=== PATIENT | male | born 1955 | race Caucasian/White ===

== ENCOUNTER → 2016-12-10 | Outpatient (CLI) | payer MEDICARE, BC ==
[~2016-12-10] MED LIST: ADVIL 200MG TA200 MG PO; ALBUTEROL0.83 MG/ML IH; ALBUTEROL1.25 MG/3 IH; ARAVA 20MG TABL20 MG PO; ASPI325T6 PO; AZULFADINE; BYSTOLIC10 MG PO; CALCIUM CITRAT200 MG PO; CARAFATE S1 GM/10 ML PO; CELLCEPT 5500 MG/TAB PO; CHANTIX1 MG PO; CITRACAL + D CA1 TAB; COMBIVENT INH14.7 GM IH; DULCOLAX S10 MG/SUPP RC; FLOVENT 110MCG7.9 GM IH; FLOVENT DI100 MCG/Ac IH; FORADIL AERO0.012 MG IH; FOSAMAX 70MG TA70 MG PO; LEVAQUIN 5500 MG/TA1 PO; LEVAQUIN 750MG750 M1 PO; LORTAB 5/500 501 TAB PO; MORPHINE 1515 MG/TAB PO; MOTRIN 600600 MG/TAB PO; MOTRIN 800800 MG/TAB PO; MSIR30 MG PO; MULTIPLE VITAMI1 CAP PO; PHENERGAN 25 TA25 MG PO; PRAVACHOL 20MG20 MG PO; PREDNISONE10 MG PO; PREDNISONE20 MG PO; PRILOSEC 20MG20 MG; PROTONIX 40MG T40 MG PO; ROXICODONE 55 MG/TAB PO; RT ADVAIR 228 DISKUS IH; RT ADVAIR HFA 2312 G IH; RT Duoneb Neb Soln IH; RT SPIRIVA18 MCG IH; SENOKOT S 50 MG1 TAB PO; SIMPONI50 MG/0.5 SC; TYLENOL EXTRA500 M1 PO; ULTRAM 50MG TAB50 MG PO; ULTRAM ER300 MG PO; VITAMIN B121000 MCG PO; VITAMIN D31 MILLION; VITAMIN D32000 IU PO; VOLTAREN 75 DR75 MG PO; ZEBETA10 MG PO; ZESTRIL 10MG10 MG PO; ZITHROMAX TRI-500 MG PO; ZITHROMAX Z PA250 MG PO; ZOCOR 20MG20 MG PO; [UNRECOGNIZED DRUG - REMARK]
== END ==
LOC: COL.VAS 08:51
DX: I34.0 Nonrheumatic mitral (valve) insufficiency (principal); I27.2 Other secondary pulmonary hypertension

== ENCOUNTER 2017-03-29 15:55 | Emergency (ER) | payer MEDICARE, BC ==
[2008-01-16 15:53] VITALS: BP 111/74
[~2017-03-29] VITALS: Ht 172.7 cm; Wt 66.4 kg
[~2017-03-29 15:55] MED LIST changes: -CITRACAL + D CA1 TAB; -MSIR30 MG PO; -VOLTAREN 75 DR75 MG PO; -ZEBETA10 MG PO
[2017-03-29 15:58] VITALS: BP 174/106; TEMP 98.2
[2017-03-29 16:52] LABS: BASO # 0.1 (0.0-0.2); BASO % 1.2 % (0.0-2.0); EOS # 0.8 (0.0-0.7); EOS % 9.1 % (0-4.0); GRAN # 4.1 (1.4-6.5); GRAN % 45.1 % (42.2-75.2); LYMPH # 2.9 (1.2-3.4); LYMPH % 32.3 % (20.0-51.0); MEAN CELL VOLUME 89 fl (80.0-100.0); MEAN CORPUSCULAR HGB CONC 32 g/dl (33.0-37.0); MONO # 1.1 (0.1-0.6); PLATELET COUNT 220 K/mm3 (130-400); RED BLOOD COUNT 3.78 M/mm3 (4.20-5.60); REDCELL DISTRIBUTION WIDTH-CV 14.1 % (11.5-14.5); WHITE BLOOD COUNT 9.1 K/mm3 (4.8-10.8)
[2017-03-29 16:56] LABS: ADJUSTED CALCIUM 9.3 mg/dL (8.4-10.2); ALBUMIN 4.5 gm/dL (3.5-5.0); BILIRUBIN,TOTAL 0.7 mg/dL (0.0-1.0); C-REACTIVE PROTEIN 1.3 mg/dL (0.0-0.9); CALCIUM 9.7 mg/dL (8.4-10.2); CREATININE, serum 1.16 mg/dL (0.66-1.25); TOTAL PROTEIN 7.7 gm/dL (6.4-8.2)
[2017-03-29 16:59] LABS: HEMATOCRIT 33.6 % (42.0-52.0); HEMOGLOBIN 10.7 g/dl (13.5-18.0); MEAN CORPUSCULAR HEMOGLOBIN 28 pg (27.0-31.0)
[2017-03-29] MEDS ORDERED: ZEBETA10 MG PO (17:44)
[2017-03-29] MEDS ORDERED: MSIR30 MG PO (17:46)
[2017-03-29] MEDS ORDERED: CITRACAL + D CA1 TAB (17:49)
[2017-03-29] MEDS ORDERED: VOLTAREN 75 DR75 MG PO (18:16)
[2017-03-29 18:32] VITALS: PULSE 79
== END 2017-03-29 18:36 | disposition home or self-care (01) ==
LOC: COL.ER 15:55
PROVIDERS: Emergency Medicine
DX: R07.81 Pleurodynia (principal); J90 Pleural effusion, not elsewhere classified; J98.11 Atelectasis; I10 Essential (primary) hypertension; K21.9 Gastro-esophageal reflux disease without esophagitis; J44.9 Chronic obstructive pulmonary disease, unspecified; D64.9 Anemia, unspecified; M06.9 Rheumatoid arthritis, unspecified; Z87.891 Personal history of nicotine dependence
CPT/HCPCS: J1885; J2765; J3010; J7030; Q9967

== ENCOUNTER → 2018-06-27 | Outpatient (CLI) | payer MEDICARE, BC ==
[~2018-06-27] MED LIST changes: +CITRACAL + D CA1 TAB; +MSIR30 MG PO; +VOLTAREN 75 DR75 MG PO; +ZEBETA10 MG PO
== END ==
LOC: COL.VAS 10:15
DX: J84.10 Pulmonary fibrosis, unspecified (principal)

== ENCOUNTER 2018-07-23 04:43 | Inpatient (IN) | payer MEDICARE, BC ==
[~2018-07-23] VITALS: Ht 172.7 cm; Wt 66.1 kg
[~2018-07-23 04:43] MED LIST changes: -CITRACAL + D CA1 TAB; +CITRACAL + D CA1 TAB PO
[2018-07-23 05:39] LABS: BASO # 0.1 (0.0-0.2); EOS # 0.2 (0.0-0.7); EOS % 2.6 % (0-4.0); GRAN # 5.2 (1.4-6.5); GRAN % 76.7 % (42.2-75.2); HEMOGLOBIN 11.1 g/dl (13.5-18.0); LYMPH # 0.9 (1.2-3.4); LYMPH % 13.2 % (20.0-51.0); MEAN CELL VOLUME 88 fl (80.0-100.0); MEAN CORPUSCULAR HEMOGLOBIN 29 pg (27.0-31.0); MEAN CORPUSCULAR HGB CONC 33 g/dl (33.0-37.0); MONO # 0.4 (0.1-0.6); MONO % 6.2 % (1.7-9.3); PLATELET COUNT 218 K/mm3 (130-400); RED BLOOD COUNT 3.88 M/mm3 (4.20-5.60); REDCELL DISTRIBUTION WIDTH-CV 15.5 % (11.5-14.5)
[2018-07-23 05:57] LABS: BILIRUBIN,TOTAL 0.5 mg/dL (0.0-1.0); C-REACTIVE PROTEIN 1.6 mg/dL (0.0-0.9); CALCIUM 9.2 mg/dL (8.4-10.2); CREATININE, serum 1.2 mg/dL (0.66-1.25); POTASSIUM 3.8 mmol/L (3.4-5.0); TOTAL PROTEIN 7.1 gm/dL (6.4-8.2)
[2018-07-23] MEDS ORDERED: ROXICODONE 55 MG/TAB PO (06:32)
[2018-07-23] MEDS ORDERED: VENTOLIN0.09 MG IH (06:39)
[2018-07-23 07:50] LABS: COLLECTION METHOD CLEAN CATCH
[2018-07-23 07:56] LABS: PH 6 (5-8); SQUAMOUS EPITHELIAL None Seen /hpf; URINE APPEARANCE Clear; URINE BACTERIA None Seen /hpf; URINE BILIRUBIN Negative (NEGATIVE); URINE BLOOD Negative (NEGATIVE); URINE COLOR Yellow; URINE GLUCOSE Negative (NEGATIVE); URINE KETONE Negative (NEGATIVE); URINE LEUKOCYTE ESTERASE Negative (NEGATIVE); URINE NITRATE Negative (NEGATIVE); URINE PROTEIN(semi-quant) Negative (NEGATIVE); URINE RBC 0-2 /hpf; URINE UROBILINOGEN Negative (NEGATIVE)
[2018-07-23 08:22] VITALS: BP 111/65; PULSE 112; TEMP 99.9
[2018-07-23 12:04] VITALS: BP 101/63; PULSE 100; TEMP 98.4
[2018-07-23 15:17] VITALS: BP 127/69; PULSE 107; TEMP 98.6
[2018-07-23 20:08] VITALS: BP 135/65; PULSE 120; TEMP 98.5
[2018-07-23 23:17] VITALS: BP 123/66; PULSE 106; TEMP 98.8
[2018-07-24 07:55] VITALS: BP 118/85; PULSE 92; TEMP 98.6
[2018-07-24 09:25] LABS: BASO # 0.1 (0.0-0.2); BASO % 0.7 % (0.0-2.0); EOS # 0.4 (0.0-0.7); EOS % 3.9 % (0-4.0); GRAN # 7.7 (1.4-6.5); GRAN % 68.8 % (42.2-75.2); LYMPH # 2.1 (1.2-3.4); LYMPH % 19.1 % (20.0-51.0); MEAN CELL VOLUME 91 fl (80.0-100.0); MEAN CORPUSCULAR HGB CONC 32 g/dl (33.0-37.0); MEAN PLATELET VOLUME 9.9 fl (7.4-10.4); MONO # 0.8 (0.1-0.6); PLATELET COUNT 191 K/mm3 (130-400); RED BLOOD COUNT 3.27 M/mm3 (4.20-5.60); REDCELL DISTRIBUTION WIDTH-CV 16.1 % (11.5-14.5)
[2018-07-24 09:28] LABS: HEMATOCRIT 29.6 % (42.0-52.0); HEMOGLOBIN 9.4 g/dl (13.5-18.0); MEAN CORPUSCULAR HEMOGLOBIN 29 pg (27.0-31.0)
[2018-07-24 09:38] LABS: ALBUMIN 3.4 gm/dL (3.5-5.0); BILIRUBIN,TOTAL 1.2 mg/dL (0.0-1.0); CALCIUM 8.1 mg/dL (8.4-10.2); CREATININE, serum 1.14 mg/dL (0.66-1.25); POTASSIUM 3.4 mmol/L (3.4-5.0); TOTAL PROTEIN 6.6 gm/dL (6.4-8.2)
[2018-07-24 12:15] VITALS: BP 132/88; PULSE 101; TEMP 98.5
[2018-07-24 15:29] VITALS: BP 131/72; PULSE 120; TEMP 99.4
[2018-07-24] MEDS ORDERED: LEVAQUIN 750MG750 M1 PO (16:05)
== END 2018-07-24 16:37 | disposition home or self-care (01) | DRG 871 ==
LOC: COL.ER 04:43 → MEDICAL 06:28
PROVIDERS: Emergency Medicine; Student in an Organized Health Care Education/Training Program
DX: A41.9 Sepsis, unspecified organism (principal); J18.9 Pneumonia, unspecified organism; J44.0 Chronic obstructive pulmonary disease with (acute) lower respiratory infection; I10 Essential (primary) hypertension; M06.9 Rheumatoid arthritis, unspecified; Z87.891 Personal history of nicotine dependence; G89.29 Other chronic pain
CPT/HCPCS: 99223-AI; 99239; J1650; J1885; J2543; J3370; J7030; J7050

== ENCOUNTER → 2022-02-18 | Outpatient (CLI) | payer MEDICARE, BC ==
[~2022-02-18] MED LIST changes: +VENTOLIN0.09 MG IH
== END ==
LOC: COL.RAD 14:00
DX: Z12.2 Encounter for screening for malignant neoplasm of respiratory organs (principal); J43.9 Emphysema, unspecified; F17.210 Nicotine dependence, cigarettes, uncomplicated

== ENCOUNTER 2022-03-20 19:03 | Emergency (ER) | payer MEDICARE, BC ==
[~2022-03-20] VITALS: Ht 172.7 cm; Wt 54.5 kg
[2022-03-20 19:11] VITALS: TEMP 100.6
[2022-03-20 19:33] LABS: BASO # 0.1 K/mm3 (0.0-0.2); BASO % 1.1 % (0.0-2.0); EOS # 0.5 K/mm3 (0.0-0.7); EOS % 4.8 % (0.0-4.0); GRAN # 7.3 K/mm3 (1.4-6.5); GRAN % 69.6 % (42.2-75.2); LYMPH # 1.8 K/mm3 (1.2-3.4); LYMPH % 16.9 % (20.0-51.0); MEAN CELL VOLUME 90 fl (80.0-100.0); MEAN CORPUSCULAR HGB CONC 31 g/dl (33.0-37.0); MONO # 0.8 K/mm3 (0.1-0.6); MONO % 7.2 % (1.7-9.3); PLATELET COUNT 200 K/mm3 (130-400); RED BLOOD COUNT 3.48 M/mm3 (4.20-5.60); REDCELL DISTRIBUTION WIDTH-CV 14.4 % (11.5-14.5)
[2022-03-20 19:38] LABS: HEMATOCRIT 31.2 % (42.0-52.0); HEMOGLOBIN 9.7 g/dl (13.5-18.0); MEAN CORPUSCULAR HEMOGLOBIN 28 pg (27-31)
[2022-03-20 19:52] LABS: ALANINE AMINOTRANSFERASE 11 U/L (0-55); ALBUMIN 4.1 gm/dL (3.4-4.8); ALKALINE PHOSPHATASE 266 U/L (40-150); ANION GAP 12 mmol/L (7-16); AST,SGOT 15 U/L (5-34); BILIRUBIN,TOTAL 0.4 mg/dL (0.2-1.2); BLOOD UREA NITROGEN 32 mg/dL (8-26); CALCIUM 9.3 mg/dL (8.4-10.2); CARBON DIOXIDE 19 mmol/L (23-31); CHLORIDE 109 mmol/L (98-107); GLUCOSE 114 mg/dL (70-99); LIPASE 20 U/L (8-78); POTASSIUM 4.5 mmol/L (3.5-4.5); SODIUM 140 mmol/L (136-145); TOTAL PROTEIN 7.6 gm/dL (6.2-8.1)
[2022-03-20 20:01] LABS: TROPONIN-I < 0.010 ng/mL (0.00-0.033)
[2022-03-20 20:10] LABS: COLLECTION METHOD CLEAN CATCH
[2022-03-20] MEDS ORDERED: FERREX 150150 MG PO (20:15)
[2022-03-20] MEDS ORDERED: MORPHINE 1515 MG/TAB PO (20:18)
[2022-03-20 20:20] LABS: PH 5 (5-8); SQUAMOUS EPITHELIAL 0-2 /hpf (0-10); URINE APPEARANCE Clear (CLEAR/HAZY); URINE BACTERIA None Seen /hpf (NONE SEEN); URINE BILIRUBIN Negative (NEGATIVE); URINE BLOOD 2+ (NEGATIVE); URINE COLOR Yellow (YELLOW); URINE GLUCOSE Negative (NEGATIVE); URINE KETONE Trace (NEGATIVE); URINE LEUKOCYTE ESTERASE Negative (NEGATIVE); URINE NITRATE Negative (NEGATIVE); URINE PROTEIN(semi-quant) Negative (NEGATIVE); URINE RBC 20-50 /hpf (0-2); URINE UROBILINOGEN Negative (NEGATIVE)
[2022-03-20] MEDS ORDERED: PREDNISONE50 MG PO (22:14)
[2022-03-20] MEDS ORDERED: DOXYCYCLINE 10100 MG PO (22:14)
[2022-03-20 22:30] VITALS: BP 126/81; PULSE 80
== END 2022-03-20 22:30 | disposition home or self-care (01) ==
LOC: COL.ER 19:03
PROVIDERS: Emergency Medicine
DX: K59.00 Constipation, unspecified (principal); D64.9 Anemia, unspecified; R94.4 Abnormal results of kidney function studies; J44.9 Chronic obstructive pulmonary disease, unspecified; Z99.81 Dependence on supplemental oxygen; Z20.822 Contact with and (suspected) exposure to COVID-19
CPT/HCPCS: J2405; J3010; Q9967

== ENCOUNTER 2024-01-19 12:44 | Outpatient (CLI) | payer MEDICARE, BC ==
[2008-01-16 15:53] VITALS: BP 111/74
[~2024-01-19] VITALS: Ht 172.7 cm; Wt 62.6 kg
[~2024-01-19 12:44] MED LIST changes: +DOXYCYCLINE 10100 MG PO; +FERREX 150150 MG PO; +PREDNISONE50 MG PO; +ZEBETA 5MG5 MG PO; -ZEBETA10 MG PO
[2024-01-19] MEDS ORDERED: Denosumab 60 MG/ML SYRINGE SQ ONE (13:00)
[2024-01-19 13:02] VITALS: BP 105/64; PULSE 71; TEMP 98.2
[2024-01-19] MEDS ORDERED: THEO-24 30300 MG/CAP PO (13:25)
[2024-01-19] MEDS ORDERED: MOBIC15 MG PO (13:26)
[2024-01-19] MEDS ORDERED: CALCIUM 600 PLU1 TAB PO (13:34)
[2024-01-19] MEDS ORDERED: FOLIC ACID0.4 MG PO (13:35)
[2024-01-19] MEDS ORDERED: VITAMINC1000TA PO (13:35)
[2024-01-19] MEDS ORDERED: PROLIA60 MG/ML SQ (13:35)
--- NOTE | 2024-01-19 13:36 | NUR ---
Pt tolerated prolia without issue. Hx and meds reviewed with pt and . They exit dept with steady gaits following med administration. Pt free of complaints at discharge.
== END 2024-01-19 13:37 | disposition home or self-care (01) ==
LOC: EUO 12:44
DX: M81.0 Age-related osteoporosis without current pathological fracture (principal)
CPT/HCPCS: J0897

== ENCOUNTER 2024-03-17 05:24 | Inpatient (IN) | payer MEDICARE, BC ==
[2024-03-17] VITALS (14 sets, daily range): BP systolic 114–152; BP diastolic 62–91; PULSE 61–97; TEMP 97.1–99
[~2024-03-17] VITALS: Ht 172.7 cm; Wt 60.5 kg
[~2024-03-17 05:24] MED LIST changes: +CALCIUM 600 PLU1 TAB PO; +FOLIC ACID0.4 MG PO; +MOBIC15 MG PO; +PROLIA60 MG/ML SQ; +THEO-24 30300 MG/CAP PO; +VITAMINC1000TA PO
[2024-03-17] MEDS ORDERED: LR 1,000 ML IV SCH (06:00)
[2024-03-17] MEDS ORDERED: Midazolam 2 MG/2 ML VIAL ONE (06:36)
[2024-03-17] MEDS ORDERED: fentaNYL 50 MCG/ML 2 ML VIAL ONE (06:36)
[2024-03-17] MEDS ORDERED: Lidocaine PF 2% (20 MG/ML) 5 ML VIAL ONE (06:36)
[2024-03-17] MEDS ORDERED: FOLIC ACID 40400 MCG PO (06:50)
[2024-03-17] MEDS ORDERED: THEO-24 30300 MG/CAP PO (06:55)
[2024-03-17] MEDS ORDERED: RT SPIRIVA18 MCG IH (06:57)
[2024-03-17] MEDS ORDERED: REMERON30 MG PO (06:57)
[2024-03-17] MEDS ORDERED: FLONASE NASAL S16 GM NS (06:58)
[2024-03-17] MEDS ORDERED: Naloxone 0.4 MG/ML VIAL IV PRN (07:00)
[2024-03-17] MEDS ORDERED: oxyCODONE 5 MG TAB PO PRN ×2 (07:00)
[2024-03-17] MEDS ORDERED: NS 1,000 ML IV SCH (07:00)
[2024-03-17] MEDS ORDERED: MORPHINE 1515 MG/TAB PO (07:00)
[2024-03-17] MEDS ORDERED: Magnes Hydrox (MOM) 80 MG/ML 30 ML CUP PO PRN (07:00)
[2024-03-17] MEDS ORDERED: Ondansetron 4 MG/2 ML VIAL IV PRN ×2 (07:00→08:00)
[2024-03-17] MEDS ORDERED: HYDROmorphone 0.5 MG/0.5 ML SYRINGE IV PRN (07:00)
[2024-03-17] MEDS ORDERED: Albuterol 0.021% Neb Soln 0.63 MG/3 ML UD IH PRN (07:15)
[2024-03-17] MEDS ORDERED: Albuterol 0.083% Neb Soln 2.5 MG/3 ML UD IH PRN (07:15)
[2024-03-17] MEDS ORDERED: Morphine Sulfate 15 MG Immediate-Release TAB PO PRN (07:15)
--- NOTE | 2024-03-17 07:22 | NUR ---
PATIENT ADMITTED TO ROOM 8 AMBULATROY WITH USE OF CANE AND IS ALERT AND ORIENTED X3. VOICES UNDERSTANDING OF SURGERY AND ANESTHESIA AND CONSENTS SIGNED. IVF STARTED AND INFUSING. SPOUSE IN ROOM. NOTED SLIGHT TREMOR OF THE RIGHT ARM AND STATES DOES HAVE SLIGHT TREMOR. PATIENT HAS FLAT AFFECT AND POOR EYE CONTACT.
[2024-03-17] MEDS ORDERED: Tranexamic Acid 1,000 MG/10 ML VIAL ONE ×2 (07:36→08:50)
[2024-03-17] MEDS ORDERED: Acetaminophen 500 MG TAB PO SCH (07:54)
[2024-03-17] MEDS ORDERED: Meperidine 50 MG/ML 1 ML VIAL IV PRN (08:00)
[2024-03-17] MEDS ORDERED: droPERidol 2.5 MG/ML 2 ML VIAL IV PRN (08:00)
[2024-03-17] MEDS ORDERED: fentaNYL 50 MCG/ML 1 ML SYRINGE/VIAL [PACU/SDC ONLY] IV PRN (08:00)
[2024-03-17] MEDS ORDERED: Morphine 2 MG/1 ML VIAL [PACU/SDC ONLY] IV PRN (08:00)
[2024-03-17] MEDS ORDERED: HYDROmorphone 1 MG/1 ML SYRINGE [PACU/SDC ONLY] IV PRN (08:00)
[2024-03-17] MEDS ORDERED: Topical Skin Adhesive 1 EACH (1 ML) TOP ONE (08:05)
[2024-03-17] MEDS ORDERED: Tiotropium 2.5 MCG Respimat MDI IH SCH (09:00)
[2024-03-17] MEDS ORDERED: Bisoprolol 5 MG TAB PO SCH (09:00)
[2024-03-17] MEDS ORDERED: Theophylline ER (24-HR) 300 MG TAB-CAP PO SCH (09:00)
--- NOTE | 2024-03-17 11:04 | NUR ---
PT TO ROOM 329 PER BED WITH REPORT FROM MIRANDA ORELLANA PACU @1048. PT IS DROWSEY BUT AROUSES TO VERBAL. LUNGS COARSE WITH DIMINISHED BASES, BOWEL SOUNDS PRESENT. DRESSING TO LEFT HIP CDI WITH AQUACEL OVER INCISION. IV TO LFA WITH LR RUNNING. SCDS AND MINA HOSE BILATERALLY. VSS, FAMLIY AT BEDSIDE.
[2024-03-17] MEDS ORDERED: ceFAZolin 1 G in Water For Injection,Sterile 10 ML IV SCH (18:00)
[2024-03-17] MEDS ORDERED: Formoterol 20 MCG,Budesonide 0.5 MG IH SCH (19:00)
[2024-03-17] MEDS ORDERED: Pravastatin 20 MG TAB PO SCH (21:00)
[2024-03-17] MEDS ORDERED: Tiotropium 18 MCG **** subs to Tiotropium 5 mcg IH SCH (21:00)
[2024-03-17] MEDS ORDERED: Mirtazapine 15 MG TAB PO SCH (21:00)
[2024-03-17] MEDS ORDERED: Fluticasone Nasal 50 MCG/Spray 16 GM BOTTLE NS SCH (21:00)
[2024-03-17] MEDS ORDERED: Sennosides/Docusate 8.6-50 MG TAB PO SCH (21:00)
--- NOTE | 2024-03-17 22:36 | NUR ---
PER REPORT PT RETURNED TO FLOOR AT 1100. NO FLUID ORDERS. PT C/O NAUSEA ON FIRST MEDICATION PASS. STARTED ON NS PER ORDERS. WILL CONTINUE TO MONITOR. DRESSING CLEAN DRY AND INTACT. NO SIGN OF DISTRESS AT THIS TIME. CONTINUE WITH PLAN OF CARE.
[2024-03-18] VITALS (8 sets, daily range): BP systolic 144–164; BP diastolic 76–95; PULSE 80–100; TEMP 98.1–98.6
[2024-03-18 06:29] LABS: HEMATOCRIT 26.1 % (42.0-52.0); HEMOGLOBIN 8.4 g/dl (13.5-18.0)
--- NOTE | 2024-03-18 07:33 | NUR ---
PT'S CALLED AT APPROX. 0400. STATUS UPDATE WAS GIVEN. STATES PT NEEDS A LOT OF ENCOURAGEMENT. PT DOES NOT WANT TO GET OUT OF BED OR TURN. PT EDUCATED ON THE NEED FOR EARLY AMBULATION. STATBLE ON ROUNDS. NO SIGN OF DISTRESS AT THIS TIME.
--- NOTE | 2024-03-18 07:52 | NUR ---
Patient laying in bed sleeping, easily awakened with verbal command. A&Ox4. VSS. IV CDI. LF thigh incision site CDI. Nurse encouraged the patient towork with PT and ambulate. Patient verbalized an understanding. Call light within reach
[2024-03-18] MEDS ORDERED: Apixaban 2.5 MG TAB PO SCH (09:00)
--- NOTE | 2024-03-18 11:44 | NUR ---
Initial visit; Patient very quiet though with encouragement of his family thanked Creative Assistant for looking in on him and offering God's blessings.
--- NOTE | 2024-03-18 12:48 | NUR ---
turn down worker met with patient, and son to discuss discharge planning. Patient complaining of a lot of pain and states he is limited with ability to work with PT. Patient verified that he lives in [place], [place] with his Davis ([phone]). She is also his DPOA. Patient sees Dr. Mistry as his PCP, uses [facility] and has multiple DME: cane, wlaker, wheelchair, walk in tub, grab bars and oxygen for nighttime use at 2LPM which is provided by [facility]. Patient was listed as Outpatient admission. SW spoke to RN who has contacted surgeon to change patient to inpt status. Discussed rehab potential with patient and family. Patient refusing "group home" but has history of IPR with previous hip surgery. SW will speak with IPR for potential referral pending progress with PT. Discharge plan: pending progress with therapy
--- NOTE | 2024-03-18 18:49 | NUR ---
MEDICATED WITH OXYCODONE 10MG PO FOR LT HIP PAIN. PT REPORTS PHYSICAL THERAPY TOLD HIM HIS BLOCK, DURING SURGERY, WAS STILL WORKING AND THEY WOULDN'T DO ANY PT TODAY.
--- NOTE | 2024-03-18 20:56 | NUR ---
PT LAYING IN BED WITH EYES CLOSED. HAS HAD DECREASE IN APPETITE. HAS NOT WORKED WITH PT YET. HAS INT TO LT HAND. HS MEDS GIVEN INCLUDING MSIR 15MG PO NOW. HAS BILATERAL EXP WHEEZES NOTED. WEARS OXYGEN AT 2L/NC AT HS PER HOME ROUTINE. REPORTS PASSING GAS, NO BM. HAS MUSA DRSG TO LT HIP D/I.
[2024-03-19] VITALS (13 sets, daily range): BP systolic 91–147; BP diastolic 58–85; PULSE 78–91; TEMP 98.1–100
--- NOTE | 2024-03-19 01:54 | NUR ---
PT ASKING FOR PAIN MEDS, SCHEDULED ES TYLENOL GIVEN WITH PRN OXYCODONE 10MG PO NOW FOR LT HIP PAIN.
--- NOTE | 2024-03-19 02:15 | NUR ---
PT TAKES SCHEDULED ES TYLENOL AT THIS TIME DENIES NEED FOR STRONGER PAIN MEDS AT THIS TIME.
--- NOTE | 2024-03-19 05:56 | NUR ---
MEDICATED WITH OXYCODONE 10MG PO WITH SCHEDULED ES TYLENOL.
--- NOTE | 2024-03-19 08:01 | NUR ---
Pt laying in bed. A&Ox4. VSS. S1S2. Diminished lung sounds on RA. Pt sounds stuffy in nose - Per Pt, normal. ABD is rounded, soft, non-tender with audible bowel sounds. Palpable pulses in all extremities. Normal strength in upper extremities, weak strength in lower extremities. Pt denies n/v, dizziness. Pt reports slight headahce 2/10 - administered Tylenol. Pt reports pain 7/10 in L hip - ssharp pain. Pt has ice pack on incision site. L hip aquacell dressing is CDI. Pt has SCDs on. L hand IV is patent. Discussed plan with Pt - up in chair for meals, work with PT, and pain mgmt. Pt had 10mg oxycodone at 0556 and discussed plan to try Morphine 15mg around 0900. Pt agreeable. No further needs at this time. Call light in reach and bed alarm on.
--- NOTE | 2024-03-19 10:14 | NUR ---
Discussed IV with provider, Dr Servando franklin with no IV access at this time.
--- NOTE | 2024-03-19 11:00 | NUR ---
Pt reporting pain 7/10, sharp in L hip. Talked about pain management with Pt and charge nurse. Pt has had multiple narcotics within a 2 hour period. Going to hold off on any more narcotics and see how PO meds manage pain for next hour or two. Pt was dozing off in chair when nurse entered room but alert and talking to nurse.
--- NOTE | 2024-03-19 11:51 | NUR ---
SW spoke with Irma, Director of IPR regarding referral. Patient has been in IPR in the past and his preference is IPR and refuses SNF. Discharge plan: IPR vs SNF
--- NOTE | 2024-03-19 12:14 | NUR ---
PCT notified RN Pt's BP was in the low 90s/50s. Pt currently sitting up in chair. Transferred Pt to bed to lay down. Will recheck BP in 15-20 min.
--- NOTE | 2024-03-19 13:45 | NUR ---
Pt's BP remained stable in upper 90s/50s. Pt laying in bed. No further complaints of dizziness or lightheadedness. Pt ate lunch.
--- NOTE | 2024-03-19 14:06 | NUR ---
SW spoke with Dr. Al and asked for IPR referral per patient's request at intake. SW reviewed PT notes that state patient is limited in his ability to work with PT due to pain. SW called patient's to discuss concerns related to patient being able to tolerate 3 hours of IPR therapy related to his current abilty to work with PT. Discussed patient voicing refusal of "shelter" during intake. stated that she will talk with patient related to these concerns. SW will meet with patient and in room tomorrow morning to discuss discharge plan. Discharge plan: TBD pending progress with therapy
--- NOTE | 2024-03-19 16:19 | NUR ---
Pt is laying in bed. at beddise. Pt states pain is 5/10 in left hip. Pt's BP is low 90s/50s. Discussed plan with Pt. Repositioned Pt, ice pack on hip. Explained because of Pt's low BP, cannot administer any narcotics. Pt agreeable to plan. Pt has call light in reach and bed alarm on.
--- NOTE | 2024-03-19 21:27 | NUR ---
PT IN BED. IS ALERT AND ORIENTED X4. HAS NO IV SITE, DR IS AWARE. HAS AQUACEL DRSG TO LT HIP, ICE PACK IN PLACE. HS MEDS GIVEN INCLUDING MSIR 15MG FOR LEFT HIP PAIN. SCDS ON.
[2024-03-20] VITALS (11 sets, daily range): BP systolic 104–126; BP diastolic 62–75; PULSE 75–92; TEMP 98.1–98.9
--- NOTE | 2024-03-20 02:22 | NUR ---
TAKES SCHEDULED ES TYLENOL NOW, DENIES NEED FOR STRONGER PAIN MEDS AT THIS TIME.
--- NOTE | 2024-03-20 06:25 | NUR ---
SCHEDULED AM MED GIVEN. NO REQUEST FOR PAIN MEDS AT THIS TIME.
--- NOTE | 2024-03-20 09:41 | NUR ---
SW attended clinical rounds with team. Patient referred to IPR. Patient not doing well with therapy to date due to increased pain. SW met with patient and to discuss discharge plan. Discussed intensity of IPR program and concern for patient being able to tolerate 3 hours of therapy daily. Patient stated "I'll just go home then, I'm not going to a assisted." Discussed patient's ability to qualify for SNF for 30 days post discharge. mentioned [facility] as an option. Patient agreeable to this and consented to referral being sent. Referral faxed to [facility]. Discharge plan: IPR vs SB
--- NOTE | 2024-03-20 10:30 | NUR ---
PATIENT UP TO BEDSIDE CHAIR WITH PT. PATIENT NOW REQUESTING SOMETHING MORE FOR PAIN. GAVE PRN MSIR, SEE MAR. AT BEDSIDE. CALL LIGHT IN REACH.
--- NOTE | 2024-03-20 10:40 | NUR ---
SW received call from admissions at [facility] stating they cannot accept pt for rehab due to not having a physician to follow. SW met with patient and to report this information. Patient is now agreeable to referra to [facility] (which is facility works). Referral faxed. states she can drive patient to facility at discharge. Discharge plan: IPR vs SNF
--- NOTE | 2024-03-20 11:50 | NUR ---
HOSPITALIST ORDERED ORTHO STATIC B/P. PATIENT DID LAYING & SITTING BUT REFUSED TO DO STANDING DUE TO PAIN IN LLE AND C/O DIZZINESS WHEN GETTING UP. PATIENT ALTERNATING BETWEEN ROXICODONE & MSIR FOR PAIN. PATIENT HAS HX OF CHRONIC PAIN AND PAIN CONTROL HAS BEEN AN ISSUE.
[2024-03-20 11:54] LABS: BASO # 0.1 K/mm3 (0.0-0.2); BASO % 0.8 % (0.0-2.0); CALCIUM 9.3 mg/dL (8.4-10.2); CREATININE, serum 1.58 mg/dL (0.72-1.25); EOS # 0.3 K/mm3 (0.0-0.7); EOS % 2.5 % (0.0-4.0); GRAN # 7.3 K/mm3 (1.4-6.5); GRAN % 68.9 % (42.2-75.2); MEAN CELL VOLUME 90 fl (80.0-100.0); MEAN CORPUSCULAR HGB CONC 31 g/dl (33.0-37.0); MEAN PLATELET VOLUME 10.7 fl (7.4-10.4); MONO # 0.9 K/mm3 (0.1-0.6); MONO % 8.3 % (1.7-9.3); PLATELET COUNT 200 K/mm3 (130-400); POTASSIUM 3.6 mEq/L (3.5-4.5); RED BLOOD COUNT 3.06 M/mm3 (4.20-5.60); REDCELL DISTRIBUTION WIDTH-CV 14.6 % (11.5-14.5)
[2024-03-20 11:59] LABS: HEMATOCRIT 27.6 % (42.0-52.0); HEMOGLOBIN 8.6 g/dl (13.5-18.0); MEAN CORPUSCULAR HEMOGLOBIN 28 pg (27-31)
--- NOTE | 2024-03-20 13:48 | NUR ---
PATIENT BACK IN BED AND REQUESTING SOMETHING FOR PAIN. GAVE PRN ROXICODONE AND SCHEDULED TYLENOL, SEE MAR.
--- NOTE | 2024-03-20 14:39 | NUR ---
HAZEL spoke with Yen at [facility] who states they can accept pt for admission. HAZEL spoke with JERRI Michelle who stated patient experiencing dizziness earlier. Will relook at him tomorrow to determine he is stable for discharge. Notified Yen at [facility]. Notified patient and of potential discharge for tomorrow, Discharge plan: SNF
--- NOTE | 2024-03-20 21:33 | NUR ---
PT IN BED, IS ALERT AND ORIENTED X4. MILD FLAT AFFECT. VOIDING PER URINAL. HS MEDS GIVEN INCLUDING MSIR 15MG PO FOR LT HIP PAIN. PT WEARING HIS OWN CLOTHES. NO IV SITE. WILL MONITOR FOR CHANGES.
[2024-03-21 00:30] VITALS: BP 136/77; PULSE 82; TEMP 98.8
--- NOTE | 2024-03-21 02:00 | NUR ---
PT SLEEPING, DID NOT AWAKEN FOR ES TYLENOL.
[2024-03-21 04:00] VITALS: BP 148/82; PULSE 80; TEMP 99.1
--- NOTE | 2024-03-21 04:09 | NUR ---
PT REPORTS PAIN TO LT HIP 05/01, OXYCODONE 10MG PO GIVEN.
[2024-03-21 04:50] VITALS: BP_SYST 148
[2024-03-21 06:53] LABS: BASO # 0.1 K/mm3 (0.0-0.2); BASO % 0.8 % (0.0-2.0); EOS # 0.3 K/mm3 (0.0-0.7); EOS % 3.4 % (0.0-4.0); GRAN # 5.4 K/mm3 (1.4-6.5); GRAN % 62.1 % (42.2-75.2); LYMPH % 23.6 % (20.0-51.0); MEAN CELL VOLUME 88 fl (80.0-100.0); MEAN CORPUSCULAR HGB CONC 32 g/dl (33.0-37.0); MEAN PLATELET VOLUME 10.5 fl (7.4-10.4); MONO # 0.8 K/mm3 (0.1-0.6); MONO % 9.5 % (1.7-9.3); PLATELET COUNT 190 K/mm3 (130-400); RED BLOOD COUNT 2.65 M/mm3 (4.20-5.60); REDCELL DISTRIBUTION WIDTH-CV 14.5 % (11.5-14.5)
[2024-03-21 06:55] LABS: HEMATOCRIT 23.3 % (42.0-52.0); HEMOGLOBIN 7.5 g/dl (13.5-18.0); MEAN CORPUSCULAR HEMOGLOBIN 28 pg (27-31)
[2024-03-21 07:36] VITALS: BP 153/80; PULSE 89; TEMP 99.6
--- NOTE | 2024-03-21 08:00 | NUR ---
PATIENT IS A&O. VSS. C/O PAIN IN LLE AT 7-8 WITH ACTIVITY AND REQUESTING SOMETHING FOR PAIN BEFORE DISCHARGE. GAVE PRN ROXICODONE WITH AM MEDS. MUSA DSG IS CD&I. NO C/O N/V. NO IV SITE. PATIENT REFUSING BREAKFAST. PLAN IS TO DISCHARGE TO [facility] THIS AM WITH . ORTHO ALREADY ROUNDED, SEE ORDERS. HEAD TO TOE ASSESSMENT COMPLETE. NO OTHER NEEDS AT THIS TIME. CALL LIGHT IN REACH.
[2024-03-21 09:00] VITALS: BP_SYST 153
--- NOTE | 2024-03-21 09:28 | NUR ---
SW met with patient and to complete Medicare IM form. Patient/ agreeable to discharge, signed form, copy provided, original on chart. Discharge orders and packet faxed to [facility]. to transport. Nurse to Nurse number provided to nurse to call report. Discharge plan: [facility]
--- NOTE | 2024-03-21 09:50 | NUR ---
PATIENT'S HERE, PERSONAL BELONGINGS ALL PACKED AND PATIENT READY TO DISCHARGE TO [facility] WHERE HIS CURRENTLY WORKS. GAVE INFO PACKET TO . CALLED REPORT TO NURSE AT . PATIENT IS DRESSED AND ESCORTED OUT VIA WC TO PERSONAL VEHICLE WITH .
== END 2024-03-21 09:50 | DRG 470 ==
LOC: SDCO 05:24 → SURG 10:45 → SDCO 12:17 → SURG 12:17
PROVIDERS: Physician Assistant; ADMIT Orthopaedic Surgery
PROC: 0SRB04Z Replacement of Left Hip Joint with Ceramic on Polyethylene Synthetic Substitute, Open Approach (ICD-10-PCS; principal; 2024-03-17 07:30)
PROC: 0SP904Z Removal of Internal Fixation Device from Right Hip Joint, Open Approach (ICD-10-PCS; 2024-03-17 07:30)
DX: T84.84XA Pain due to internal orthopedic prosthetic devices, implants and grafts, initial encounter (principal); M16.12 Unilateral primary osteoarthritis, left hip; J44.9 Chronic obstructive pulmonary disease, unspecified; M06.9 Rheumatoid arthritis, unspecified
CPT/HCPCS: OP; A6197; A9270; A9284; C1713; C1776; J0690; J1170; J2250; J2405; J2704; J3010; J7030; J7120